=== PATIENT | male | born 1965 | race Caucasian/White ===

== ENCOUNTER 2016-07-18 15:22 | Outpatient (CLI) | payer OTHER | END 2016-07-18 15:23 | disposition home or self-care (01) | DRG 558 | LOC: CONVCARE 15:22 | PROVIDERS: ATTEND Orthopaedic Surgery | DX: M75.42 Impingement syndrome of left shoulder (principal); M75.41 Impingement syndrome of right shoulder | CPT/HCPCS: 73030 ==

== ENCOUNTER 2017-10-05 12:24 | Emergency (ER) | payer OTHER ==
[2017-10-05 12:45] VITALS: TEMP 97.8
[2017-10-05] MEDS ORDERED: ASPIRIN 81 MG CHEWABLE CTB PO ONE (12:46)
[2017-10-05] MEDS ORDERED: NITROGLYCERIN 0.4 MG TAB SL PRN (12:46)
[2017-10-05 12:50] LABS: BASOPHILS % (AUTO) 0 % (0-3); EOSINOPHILS % (AUTO) 3 % (0-9); HEMATOCRIT 46 % (39-53); HEMOGLOBIN 16.2 gm/dl (13.5-17.7); MEAN CORPUSCULAR HEMOGLOBIN 31.9 pg (27.0-32.0); MEAN CORPUSCULAR HGB CONC 35.3 gm/dl (32.0-36.0); MEAN CORPUSCULAR VOLUME 90 fL (80-100); MONOCYTES % (AUTO) 7.9 % (0-12); NEUTROPHILS % (AUTO) 55.1 % (37-80)
[2017-10-05] MEDS ORDERED: HYDRALAZINE HYDROCHLORIDE 20 MG/ML SOL IV PRN (12:50)
[2017-10-05] MEDS ORDERED: HYDRALAZINE HYDROCHLORIDE 20 MG/ML SOL ONE (12:51)
[2017-10-05] MEDS ORDERED: ASPIRIN 81 MG CHEWABLE CTB ONE (12:51)
[2017-10-05] MEDS ORDERED: SODIUM CHLORIDE 0.9% FLUSH 10 ML SOL IV PRN (12:58)
[2017-10-05 13:14] LABS: ALBUMIN 4.1 gm/dl (3.4-5.0); ALKALINE PHOSPHATASE 75 IU/L (46-116); ALT 71 IU/L (14-63); AST 49 IU/L (15-37); BILIRUBIN,DIRECT 0.2 mg/dl (0.0-0.2); BILIRUBIN,TOTAL 0.7 mg/dl (0.2-1.0); BLOOD UREA NITROGEN 18 mg/dl (7-18); CALCIUM 8.6 mg/dl (8.5-10.1); CARBON DIOXIDE 28.6 mEq/L (21-32); CHLORIDE 100 mMol/L (98-107); GLOM FILT RATE 58 mL/min (>60); GLUCOSE 111 mg/dl (74-106); SODIUM 139 mMol/L (136-145); THYROID STIMULATING HORMONE 1.407 uIU/ml (0.358-3.740); TOTAL PROTEIN 7.3 gm/dl (6.4-8.2); TROP I < 0.017 ng/ml (0.000-0.056)
[2017-10-05 13:18] VITALS: O2SAT 96
[2017-10-05 13:20] LABS: BAND NEUTROPHILS % (MANUAL) 1 %; BASOPHILS % (MANUAL) 0 % (0-3); EOSINOPHILS % (MANUAL) 1 % (0-9); LYMPHOCYTES % (MANUAL) 30 % (10-50); MONOCYTES % (MANUAL) 14 % (0-12); NEUTROPHILS % (MANUAL) 54 % (37-80); NORMAL RBCS PRESENT
[2017-10-05] MEDS ORDERED: AMLODIPINE 5 MG TAB ONE (13:29)
[2017-10-05] MEDS ORDERED: AMLODIPINE 5 MG TAB PO SCH (13:30)
[2017-10-05 15:57] VITALS: BP 164/99; PULSE 64; RESP 18
== END 2017-10-05 14:01 | disposition home or self-care (01) | DRG 305 ==
LOC: ED 12:24
DX: I16.9 Hypertensive crisis, unspecified (principal); R00.1 Bradycardia, unspecified
CPT/HCPCS: 71045; 80048; 80076; 84443; 84484; 85007; 85027; 93005; 99285; J0360; A9270-GY